=== PATIENT | female | born 1930 | race Caucasian/White ===

== ENCOUNTER 2021-04-03 15:33 | Inpatient (IN) | payer OTHER, MEDICAID, SELFPAY ==
[~2021-04-03] VITALS: Ht 149.9 cm; Wt 49.9 kg
[2021-04-03 15:33] VITALS: BP_SYST 224
[2021-04-03] MEDS ORDERED: ACETAMINOPHEN 325 MG TABLET PO ONE (15:45)
--- NOTE | 2021-04-03 15:51 | NUR ---
PT BIBA FROM [facility] [place], PT AAOX4, IN NAD. REPORTS SHE TWISTED HER FEET AND FELL, DENIES LOC. NO OBVIOUS HEAD TRAUMA OR ANY INJURY SEEN. PT ONLY REPORTS MOD PAIN TO RT THIGH 10/09. PT HYPERTENSIVE AT 198/102, DOES NOT KNOW IF SHE TOOK HER HTN MEDS THEY ARE GIVEN BY THE STAFF IN HER HOME. SAFETY PRECAUTIONS TAKEN.
--- NOTE | 2021-04-03 15:53 | NUR ---
dr ford in room for exam
--- NOTE | 2021-04-03 15:58 | NUR ---
PT BACK FROM CT SCAN
--- NOTE | 2021-04-03 16:45 | NUR ---
PT HAD TWO EPISODES OF DIARRHEA, DR FONSECA INFORMED.
[2021-04-03 16:58] LABS: BASOPHILS # (AUTO) 0.1 K/uL (0.0-0.2); BASOPHILS % (AUTO) 0.6 % (0.0-2.0); EOSINOPHILS # (AUTO) 0.4 K/uL (0.0-0.4); EOSINOPHILS % (AUTO) 3.4 % (0.0-4.0); HEMATOCRIT 40.4 % (36-48); HEMOGLOBIN 13.6 g/dL (12.0-16.0); LYMPHOCYTES % (AUTO) 9.6 % (20.5-51.5); MEAN CORPUSCULAR HEMOGLOBIN 33 pg (27-31); MEAN CORPUSCULAR HGB CONC 34 % (32-36); MEAN CORPUSCULAR VOLUME 97 fL (79.0-98.0); MONOCYTES # (AUTO) 0.6 K/uL (0.0-1.0); MONOCYTES % (AUTO) 5.5 % (1.7-9.3); NEUTROPHILS # (AUTO) 8.2 K/uL (1.8-7.7); NEUTROPHILS % (AUTO) 80.9 % (40.0-70.0); PLATELET COUNT (AUTO) 241 K/uL (130-430); RED BLOOD CELL COUNT(AUTO) 4.18 MIL/uL (4.2-6.2); RED CELL DISTRIBUTION WIDTH 13.9 % (9.0-15.0); WHITE BLOOD COUNT (AUTO) 10.2 K/uL (4.8-10.8)
[2021-04-03] MEDS ORDERED: METOPROLOL TARTRATE 5 MG/5 ML AMPUL IVP ONE (17:00)
--- NOTE | 2021-04-03 17:03 | NUR ---
XRAY AT BEDSIDE.
--- NOTE | 2021-04-03 17:03 | NUR ---
# 16 FR catheter with use of sterile technique. Immediate return of cc urine noted. Bedside drainage bag placed below level of bladder. Urine sample collected and sent to lab. Pt tolerated procedure . Patient arrived with in place, changed due to standard of practice prior to admission. Patient unable to toilet self.
[2021-04-03 17:07] LABS: ANION GAP 5 (5-15); CHLORIDE 99 mmol/L (98-107); CREATININE 0.88 mg/dL (0.55-1.30); GLUCOSE 126 mg/dL (70-99); POTASSIUM 3.6 mmol/L (3.5-5.1); SODIUM SERUM 134 mmol/L (136-145); UREA NITROGEN, BLOOD 23 mg/dL (8-21)
[2021-04-03 17:16] LABS: BILIRUBIN,URINE NEGATIVE (NEGATIVE); BLOOD, URINE 1+ (NEGATIVE); CLARITY/URINE CLEAR (CLEAR); COLOR,URINE YELLOW (YELLOW); GLUCOSE,URINE NEGATIVE (NEGATIVE); KETONES,URINE NEGATIVE (NEGATIVE); LEUKOCYTE ESTERASE ,URINE 1+ (NEGATIVE); NITRITE, URINE POSITIVE (NEGATIVE); PH,URINE 7.5 (5.0-8.0); PROTEIN URINE NEGATIVE (NEGATIVE); UROBILINOGEN,URINE 0.2 (0.2-1.0)
[2021-04-03 17:32] LABS: BACTERIA,URINE MANY /HPF (None Seen); WBC,URINE 20-50 /HPF (0-3)
[2021-04-03 17:33] LABS: CALCIUM OXALATE CRYSTALS,UR None Seen /HPF (None Seen); CALCIUM PHOSPHATE CRYSTALS,UR None Seen /HPF (None Seen); OTHER CRYSTALS,URINE None Seen /HPF (None Seen); TRICHOMONAS,URINE None Seen /HPF (None Seen)
[2021-04-03] MEDS ORDERED: ACETAMINOPHEN 325 MG TABLET PO PRN (18:00)
[2021-04-03] MEDS ORDERED: cefTRIAXone 1 GM IVPB PREMIX 50 ML IV ONE (18:00)
[2021-04-03] MEDS ORDERED: cefTRIAXone 1 GM IVPB PREMIX 50 ML IV SCH (18:00)
[2021-04-03] MEDS ORDERED: ONDANSETRON HCL 4 MG/2 ML VIAL IVP PRN (18:00)
[2021-04-03] MEDS ORDERED: hydrALAZINE HCL 20 MG/ML VIAL ONE (18:31)
--- NOTE | 2021-04-03 18:31 | NUR ---
MEDICATED WITH HYDRALAZINE 5MG IVP, HAD TO OVERRIDE. AISLINN ROGERS INFORMED, UNABLE TO CHART.
[2021-04-03] MEDS ORDERED: APIX2.5T PO (18:50)
[2021-04-03] MEDS ORDERED: METH2.5T PO (18:50)
--- NOTE | 2021-04-03 18:54 | NUR ---
AISLINN ROGERS IMFORMED OF PT'S CONT DEVAN BP 214/84, PT GIVEN LOPRESSOR AND HYDRALAZINE IV. PT CONTINUES TO BE HYPERTENSIVE. DR ROSADO INFORMED.
[2021-04-03 19:00] VITALS: BP_SYST 148
[2021-04-03] MEDS ORDERED: cloNIDine HCL 0.1 MG TABLET ONE (19:00)
[2021-04-03] MEDS ORDERED: cloNIDine HCL 0.1 MG TABLET PO ONE (19:00)
--- NOTE | 2021-04-03 19:07 | NUR ---
REPORT GIVEN TO GABY SHIRLEY
[2021-04-03] MEDS ORDERED: MORPHINE 2 MG/ML INJ. SYRINGE ONE (19:13)
--- NOTE | 2021-04-03 19:15 | NUR ---
change of shift.pt.received via the er-dept.pt.presents s/p fall:rt.hip fx.pt.received morphine ivp p/t transfer.pt.presents iv access location rt.hand iv lock.pt.presents cath intact.pt.stated pain level comfortable.general status stable. respiratory status stable;unlabored@room air.call light/telephone placed w/in access of the pt.
--- NOTE | 2021-04-03 19:18 | NUR ---
RECEIVED REPORT FROM KATHYA SHIRLEY
--- NOTE | 2021-04-03 19:19 | NUR ---
PT HAS ADMITTING ORDER FOR MORPHINE 2MG IVP, HOWEVER, NOT SHOWING UP ON EMAR, OK'ED BY CHARGE KEN TO PULL MS FROM PYXIS. KEN RN WITNESS TO OR REMOVING MS. PT WAS HAVING SUDDEN 10/10 PAIN TO GROIN AREA.
--- NOTE | 2021-04-03 19:58 | NUR ---
Patient will be admitted to care of DR ROSADO. Admitted to TELE unit. Will go to room 120A. Belongings list completed. Complete and up to date summary report printed. SBAR report to be given at bedside with opportunity for questions.
[2021-04-03 20:00] VITALS: BP_SYST 148
--- NOTE | 2021-04-03 20:00 | NUR ---
pt.assessed.v/s assessed values note b/p status elevated.to f/u review emar med-list. cath intact urine content present.pt.assessed for cleanliness pt.repositioned.i have reviewed w pt.the diet status:npo;and indication.general status stable.respiratory status stable;unlabored.call light/telephone placed w/in access of the pt.
--- NOTE | 2021-04-03 21:30 | NUR ---
i have initiated the administration iv fluids ns via peripheral iv access location:rt.hand and catapres:0.2mg po x1 dose. no c/o pain,nausea.call light/telephone placed w/in access of the pt.
[2021-04-03] MEDS: NACL 0.9% 1,000 ML IV SCH (21:39)
--- NOTE | 2021-04-03 22:00 | NUR ---
pt.assessed.pt.presents quiescent affect;calm,somnolent.per flacc pain mgx pt.absent facial grimaces/body posturing.iv access intact iv fluids infusing. cath intact urine content present.pt.assessed for cleanliness pt.repositioned.call light/telephone placed w/in access of the pt.
[2021-04-04] VITALS: BP_SYST 141
--- NOTE | 2021-04-04 | NUR ---
pt.assessed.v/s assessed values wnl.no c/o pain,nausea.iv access intact iv fluids infusing. cath intact urine content present.pt.assessed for cleanliness pt.repositioned.call light/telephone placed w/in access of the pt.
[2021-04-04] MEDS: MORPHINE 2 MG/ML INJ. SYRINGE IVP PRN ×2 (01:42→06:40)
--- NOTE | 2021-04-04 02:00 | NUR ---
pt.assessed.pt.requested medication;pain.i have administered morphine;1mg ivp.to assess the efficacy of the pain medication per pain mgx protocol.iv access intact iv fluids infusing. cath intact urine content present.pt.assessed for cleanliness pt.repositioned.call light/telephone placed w/in access of the pt.
--- NOTE | 2021-04-04 04:00 | NUR ---
pt.assessed.pt.presents quiescent affect;calm,somnolent.per flacc pain mgx pt.absent facial grimaces/body posturing. iv access intact iv fluids infusing.pt.assessed for cleanliness.pt.repositioned.call light/telephone placed w/in access of the pt.
--- NOTE | 2021-04-04 05:07 | NUR ---
CONSULTATION PAGED/CALLED Reason for Consultation: RIGHT FEMUR FRX Person Who was Notified: BJORN Consulting Physician: TATUM Compounding Pharmacy Technician Specialty: Ordering Physician: AYESHA
--- NOTE | 2021-04-04 06:30 | NUR ---
pt.assessed.i have administered morphine;1mg ivp.to assess the efficacy of the pain medication per pain mgx protocol.pt.repositioned.iv access intact iv fluids infusing.call light/telephone placed w/in access of the pt.
[2021-04-04 07:18] LABS: BASOPHILS # (AUTO) 0.1 K/uL (0.0-0.2); BASOPHILS % (AUTO) 0.7 % (0.0-2.0); EOSINOPHILS # (AUTO) 0.3 K/uL (0.0-0.4); EOSINOPHILS % (AUTO) 3.1 % (0.0-4.0); HEMATOCRIT 36.5 % (36-48); HEMOGLOBIN 12.3 g/dL (12.0-16.0); LYMPHOCYTES # (AUTO) 1.1 K/uL (1.0-5.5); LYMPHOCYTES % (AUTO) 9.4 % (20.5-51.5); MEAN CORPUSCULAR HEMOGLOBIN 33 pg (27-31); MEAN CORPUSCULAR HGB CONC 34 % (32-36); MEAN CORPUSCULAR VOLUME 97 fL (79.0-98.0); MONOCYTES # (AUTO) 0.6 K/uL (0.0-1.0); MONOCYTES % (AUTO) 5.5 % (1.7-9.3); NEUTROPHILS # (AUTO) 9.3 K/uL (1.8-7.7); NEUTROPHILS % (AUTO) 81.3 % (40.0-70.0); PLATELET COUNT (AUTO) 209 K/uL (130-430); RED BLOOD CELL COUNT(AUTO) 3.78 MIL/uL (4.2-6.2); RED CELL DISTRIBUTION WIDTH 14.1 % (9.0-15.0); WHITE BLOOD COUNT (AUTO) 11.4 K/uL (4.8-10.8)
[2021-04-04 07:45] LABS: ANION GAP 9 (5-15); CALCIUM 8.1 mg/dL (8.4-11.0); CHLORIDE 99 mmol/L (98-107); CREATININE 0.89 mg/dL (0.55-1.30); GLUCOSE 107 mg/dL (70-99); SODIUM SERUM 135 mmol/L (136-145); UREA NITROGEN, BLOOD 18 mg/dL (8-21)
[2021-04-04 08:06] VITALS: BP_SYST 137
--- NOTE | 2021-04-04 08:29 | NUR ---
ATTEMPTED TO SEE PATIENT FOR PHYSICAL THERAPY EVALUATION. AWAITING ORTHO CONSULTATION. PATIENT CONTINUES WITH INCREASED PAIN; PRE-MEDICATED. WILL FOLLOW UP TUESDAY; RN AWARE.
[2021-04-04] MEDS: cefTRIAXone 1 GM in D5W 50 ML IV SCH (08:30)
--- NOTE | 2021-04-04 08:34 | NUR ---
ROCEPHIN IV GIVEN AT THIS TIME.
--- NOTE | 2021-04-04 08:34 | NUR ---
NOTES PATIENT AAOX 4. LUNGS BILATERALLY CLEAR. ABDOMEN SOFT AND NON DISTENDED. HAS IV ACCESS ON THE RT WRIST #22 WITH NORMAL SALINE AT 40CC/HR INFUSING ON WELL. CALL LIGHTS WITHIN REACH. BED LOW POSITION, ALARMED AND LOCKED. WILL CONTINUE TO MONITOR.
[2021-04-04] MEDS ORDERED: KCL 40 mEq in 100 mL (PREMIX) 100 ML IV PRN (09:15)
--- NOTE | 2021-04-04 11:40 | NUR ---
Nutrition Update Loc Scale 17 noted. Pt admitted for R femur fracture, UTI. Diet: NPO BMI: 22.4 kg/m2 RD to follow per nutrition care standards.
[2021-04-04 12:20] LABS: INR 1.2 (0.8-1.2); PROTHROMBIN TIME 12.2 SECS (9.5-12.5)
[2021-04-04] MEDS ORDERED: KCL 20 mEq in 100 mL (PREMIX) 200 ML IV PRN (13:00)
[2021-04-04 13:02] VITALS: BP_SYST 139
[2021-04-04 15:45] VITALS: BP_SYST 137
--- NOTE | 2021-04-04 16:20 | NUR ---
POTASSIUM IV GIVEN ORDERED BY THE PRIMARY MD.
[2021-04-04 17:12] VITALS: BP_SYST 138
--- NOTE | 2021-04-04 18:26 | NUR ---
Dietitian Recommendations * Cardiac diet w/ Ensure High Protein BID, Mendez BID (supplements provide 500 kcal/day, 37 gm protein/day) * Encourage increase PO intakes LP, RD Please refer to Nutrition Assessment for details. Addendum: 04/04/21 at [address] Amended: Links added.
[2021-04-04] MEDS: NACL 0.9% 1,000 ML IV SCH (18:37)
--- NOTE | 2021-04-04 18:38 | NUR ---
PATIENT REFUSED PAIN MEDICATION, SAID I AM OKAY FOR NOW.
[2021-04-04 20:00] VITALS: BP_SYST 129
--- NOTE | 2021-04-04 20:00 | NUR ---
Pt received in bed resting. No signs of distress. Verbally responsive and able to make needs known. Breathing adequately on RA. Denies any pain/discomfort to R femur at this time. Repositioned for comfort. Offered pain medications but refused at this time. IVF continue running as ordered; shila well. FC draining clr/yellow urine at this time. Call light within reach
[2021-04-05] VITALS (10 sets, daily range): BP systolic 112–189
[2021-04-05] MEDS ORDERED: BISACODYL 10 MG/SUPPOSITORY RC ONE (06:00)
--- NOTE | 2021-04-05 06:21 | NUR ---
Pt up in bed in stable cond. No change in condition. Pt asked to turn television on at this time. Denies any pain/discomfort. IVF continue running as ordered and shila well. Pt with order for suppository this am; refused at this time due to Large BM last night. Bed in low position. Call light within reach.
[2021-04-05 07:44] LABS: BASOPHILS # (AUTO) 0.1 K/uL (0.0-0.2); BASOPHILS % (AUTO) 0.6 % (0.0-2.0); EOSINOPHILS # (AUTO) 0.5 K/uL (0.0-0.4); EOSINOPHILS % (AUTO) 5.1 % (0.0-4.0); HEMATOCRIT 39.3 % (36-48); HEMOGLOBIN 13.2 g/dL (12.0-16.0); LYMPHOCYTES # (AUTO) 0.8 K/uL (1.0-5.5); LYMPHOCYTES % (AUTO) 7.6 % (20.5-51.5); MEAN CORPUSCULAR HEMOGLOBIN 33 pg (27-31); MEAN CORPUSCULAR HGB CONC 34 % (32-36); MEAN CORPUSCULAR VOLUME 97 fL (79.0-98.0); MONOCYTES # (AUTO) 0.9 K/uL (0.0-1.0); MONOCYTES % (AUTO) 8.6 % (1.7-9.3); NEUTROPHILS # (AUTO) 7.8 K/uL (1.8-7.7); NEUTROPHILS % (AUTO) 78.1 % (40.0-70.0); PLATELET COUNT (AUTO) 193 K/uL (130-430); RED BLOOD CELL COUNT(AUTO) 4.06 MIL/uL (4.2-6.2); RED CELL DISTRIBUTION WIDTH 14.1 % (9.0-15.0)
--- NOTE | 2021-04-05 07:58 | NUR ---
CONSULTATION PAGED/CALLED Reason for Consultation: PRE-OP CARDIAC, AFIB W RVR Person Who was Notified: VICTORINA Consulting Physician: TERRI Debt Management Counselor Specialty: CARDIO Ordering Physician: GÉNESIS
--- NOTE | 2021-04-05 08:00 | NUR ---
NOTES PATIENT AAOX3-4 LUNGS BILATERALLY CLEAR. ABDOMEN SOFT AND NON DISTENDED. HAS IV ACCESS ON THE RT HAND #22 WITH NS 75CC/HR INFUSING ON WELL. CALL LIGHTS WITHIN REACH. BED IN LOW POSITION, ALARMED AND LOCKED. PLACED SCDS BILATERALLY. WILL CONTINUE MONITOR
[2021-04-05] MEDS: MORPHINE 2 MG/ML INJ. SYRINGE IVP PRN (08:11)
[2021-04-05] MEDS: hydrALAZINE HCL 20 MG/ML VIAL IVP PRN (08:13)
[2021-04-05] MEDS: cefTRIAXone 1 GM in D5W 50 ML IV SCH (08:14)
[2021-04-05 08:25] LABS: ANION GAP 11 (5-15); CALCIUM 8.5 mg/dL (8.4-11.0); CHLORIDE 101 mmol/L (98-107); CREATININE 0.86 mg/dL (0.55-1.30); GLUCOSE 105 mg/dL (70-99); SODIUM SERUM 136 mmol/L (136-145); UREA NITROGEN, BLOOD 16 mg/dL (8-21)
--- NOTE | 2021-04-05 08:30 | NUR ---
DR ROSADO TO CALL DR WINN FOR VERIFICATION OF THE SITE OF SURGERY.
[2021-04-05] MEDS ORDERED: cloNIDine HCL 0.1 MG TABLET PO PRN (08:45)
[2021-04-05] MEDS ORDERED: CARVEDILOL 3.125 MG TABLET (COREG) PO SCH (09:00)
--- NOTE | 2021-04-05 09:26 | NUR ---
CALLED DR WINN FOR VERIFICATION OF CONSENT TO READ ORDER FOR SURGERY. AWAITING TO CALL BACK.
[2021-04-05] MEDS ORDERED: METOPROLOL TARTRATE 50 MG TABLET PO SCH (09:30)
--- NOTE | 2021-04-05 09:30 | NUR ---
DUE MEDS GIVEN AT THIS TIME. MADE COMFORTABLE
[2021-04-05 09:31] LABS: POTASSIUM 2.9 mmol/L (3.5-5.1)
[2021-04-05] MEDS ORDERED: lisinopriL 20 MG TABLET PO ONE (11:30)
[2021-04-05] MEDS ORDERED: POTASSIUM CHLORIDE 20 MEQ TAB.PRT.SR PO ONE (11:30)
[2021-04-05] MEDS: DOCUSATE SODIUM 100 MG CAPSULE PO SCH ×2 (11:39→20:16)
[2021-04-05] MEDS: POLYETHYLENE GLYCOL 3350, 17 GM/ POWD.PACK PO SCH (11:39)
[2021-04-05] MEDS ORDERED: METOPROLOL TARTRATE 50 MG TABLET PO ONE (11:45)
--- NOTE | 2021-04-05 13:14 | NUR ---
DR ALONZO VALDES CALLED FOR POTASSIUM LEVEL OF 2.9 DR MURRAY ORDERED K DUR 20 MEQ PO AWAITING TO CALL BACK
--- NOTE | 2021-04-05 13:45 | NUR ---
PAGED DR ROSADO PAGED DR ROSADO FOR ORDERS LEFT A VOICEMAIL
--- NOTE | 2021-04-05 13:55 | NUR ---
CALLED DR TATUM SOLIS FOR POTASSIUM K RIDER. IV ORDER.
--- NOTE | 2021-04-05 13:55 | NUR ---
HIGH ALERT NOTE: Called Dr. WINN [id number] back [id number] identified within the medical roster to verify physician authenticity.
[2021-04-05] MEDS ORDERED: POTASSIUM CHLORIDE 20 MEQ in NS 250 ML IV ONE ×2 (14:00→18:00)
--- NOTE | 2021-04-05 15:50 | NUR ---
SECOND PAGE DR ROSADO PAGED USING ANSWERING SERVICE LEFT SECOND VOICEMAIL.
--- NOTE | 2021-04-05 15:58 | NUR ---
FIRST BAG OF POTASSIUM 20 MEQ HANGED AT THIS TIME. AFTER THIS BAG ANOTHER ONE TO COMPLETE.
--- NOTE | 2021-04-05 17:00 | NUR ---
INFORMED KATHY JEAN REGARDING INCENTIVE SPIROMETRY TEACHING.
--- NOTE | 2021-04-05 17:31 | NUR ---
PATIENT RESTING QUITELY. NO PAIN NOR DISTRESS NOTED. VITALS SIGNS STABLE. AFEBRILE.
--- NOTE | 2021-04-05 17:45 | NUR ---
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 AWAITING TO CALL BACK.
--- NOTE | 2021-04-05 18:14 | NUR ---
PATIENT VERBALIZED THAT SHE IS FULL EATING DINNER. PLEASE CONTINUE TO FILL UP DOCUMENTS FOR SURGERY TOMORROW IN PM. AFTER BREAKFAST PATIENT TO BE NPO, ORDERED.
[2021-04-05] MEDS: NACL 0.9% 1,000 ML IV SCH (20:00)
--- NOTE | 2021-04-05 20:00 | NUR ---
Pt received up in bed in stable cond. Verbally responsive and able to make needs known. No signs of apparent distress. Breathing adequately on RA. Pt with scheduled R hip arthoplasty for tomorrow am and to be NPO after breakfast;Pt aware. Denied any need for pain medication at this time. Repositioned for comfort. IVF running adequately. No signs of infiltration;infection to site. Call light within reach.
[2021-04-05] MEDS: POTASSIUM CHLORIDE 20 MEQ TAB.PRT.SR PO SCH (20:16)
[2021-04-05] MEDS: METOPROLOL TARTRATE 50 MG TABLET PO SCH (20:17)
--- NOTE | 2021-04-05 21:30 | NUR ---
2nd bag of POTASSIUM 20 MEQ running at this time as ordered.
--- NOTE | 2021-04-05 22:19 | NUR ---
CONSULTATION CALLED FOR DR MURRAY FOR CONSULT OF PRE-OP CARDIAC, AFIB W/ RVR ORDER BY DR ROSADO SPOKE WITH ADE
[2021-04-06] VITALS (7 sets, daily range): BP systolic 128–194
[2021-04-06] MEDS: NACL 0.9% 1,000 ML IV SCH ×2 (06:23→20:30)
--- NOTE | 2021-04-06 06:39 | NUR ---
Pt noted up in bed at this time. No signs of distress. Verbally responsive and able to make needs known. Cont breathing adequately on RA. No change in condition noted. Care to be endorsed to am nurse. Pt with scheduled surgery to R hip as ordered; to be NPO after breakfast.
[2021-04-06 07:20] LABS: BASOPHILS # (AUTO) 0.1 K/uL (0.0-0.2); BASOPHILS % (AUTO) 0.6 % (0.0-2.0); EOSINOPHILS # (AUTO) 0.6 K/uL (0.0-0.4); HEMATOCRIT 39.3 % (36-48); HEMOGLOBIN 12.9 g/dL (12.0-16.0); LYMPHOCYTES # (AUTO) 0.9 K/uL (1.0-5.5); LYMPHOCYTES % (AUTO) 6.6 % (20.5-51.5); MEAN CORPUSCULAR HEMOGLOBIN 32 pg (27-31); MEAN CORPUSCULAR HGB CONC 33 % (32-36); MEAN CORPUSCULAR VOLUME 97 fL (79.0-98.0); MONOCYTES # (AUTO) 1.1 K/uL (0.0-1.0); MONOCYTES % (AUTO) 8.3 % (1.7-9.3); NEUTROPHILS # (AUTO) 10.3 K/uL (1.8-7.7); NEUTROPHILS % (AUTO) 79.5 % (40.0-70.0); PLATELET COUNT (AUTO) 180 K/uL (130-430); RED BLOOD CELL COUNT(AUTO) 4.04 MIL/uL (4.2-6.2); RED CELL DISTRIBUTION WIDTH 14.7 % (9.0-15.0)
--- NOTE | 2021-04-06 07:47 | NUR ---
CONSULTATION PAGED REASON FOR CONSULTATION:MRSA, UTI WAS CONSULT CALLED?Y PERSON WHO WAS NOTIFIED:THANG CONSULTING PHYSICIAN:CHANTEL RICE HYPERTRICHOLOGIST SPECIALTY:INFECTIOUS DISEASE HYPERTRICHOLOGIST PHONE NUMBER:[phone] REQUESTING PHYSICIAN:[facility]
--- NOTE | 2021-04-06 08:00 | NUR ---
late entry due to care am notes pt stable denies any pain or orther discomfort .res even and unlabored. ivf infusing well. iv site intact. no s/s of infiltration noted. safety/fall precaution in place. .poc discussed with pt. pt verbalized understanding.
[2021-04-06 08:16] LABS: ALANINE AMINOTRANSFERASE 31 U/L (12-78); ALBUMIN 2.8 g/dL (3.4-4.8); ANION GAP 10 (5-15); ASPARTATE AMINOTRANSFERASE 27 U/L (10-37); CALCIUM 8.3 mg/dL (8.4-11.0); CHLORIDE 103 mmol/L (98-107); CREATININE 0.75 mg/dL (0.55-1.30); GLUCOSE 123 mg/dL (70-99); POTASSIUM 3.3 mmol/L (3.5-5.1); SODIUM SERUM 137 mmol/L (136-145); TOTAL BILIRUBIN 0.9 mg/dL (0.0-1.0); UREA NITROGEN, BLOOD 16 mg/dL (8-21)
[2021-04-06] MEDS: POTASSIUM CHLORIDE 20 MEQ TAB.PRT.SR PO SCH ×2 (08:22→21:56)
[2021-04-06] MEDS: lisinopriL 20 MG TABLET PO SCH (08:22)
[2021-04-06] MEDS: METOPROLOL TARTRATE 50 MG TABLET PO SCH ×2 (08:23→21:57)
[2021-04-06] MEDS: POLYETHYLENE GLYCOL 3350, 17 GM/ POWD.PACK PO SCH (08:25)
[2021-04-06] MEDS: DOCUSATE SODIUM 100 MG CAPSULE PO SCH ×2 (08:25→21:56)
[2021-04-06] MEDS ORDERED: VANCOMYCIN HCL 500 MG in NS 100 ML IV SCH (10:00)
[2021-04-06] MEDS ORDERED: VANCOMYCIN HCL 1 GM/NS PREMIX 250 ML IV ONE (10:30)
--- NOTE | 2021-04-06 12:30 | NUR ---
rounds pt stable not in acute distress. denies any pain or orther discomfort. will conitnue to monitor.lauren from surgery called and informed that as per dr wheeler surgery will be tomorrow.
[2021-04-06] MEDS: hydrALAZINE HCL 20 MG/ML VIAL IVP PRN (13:57)
--- NOTE | 2021-04-06 14:00 | NUR ---
bp pt bp 178/103 hydralazine 5 mg ivp given as ordered. pt stable denies any pain or orther discomfort. call light within reach. kept comfortable. will continue to monitor
--- NOTE | 2021-04-06 14:30 | NUR ---
recheck bp recheck bp 128/82. denies any pain or sob.
--- NOTE | 2021-04-06 16:44 | NUR ---
rounds pt stable not in acute distress. repositioned with pillow c/ of pain during movement. offered pain med .pt refused for pain med at this time. will continue to monitor
--- NOTE | 2021-04-06 19:00 | NUR ---
closing notes pt stable denies any pain or orther discomfort .res even and unlabored. ivf infusing well. iv site intact. no s/s of infiltration noted. safety/fall precaution in place. .poc discussed with pt. pt verbalized understanding. call light within reach. needs attended.will endorse to night nurse
--- NOTE | 2021-04-06 19:20 | NUR ---
Zahra Negrete s/w Terri
--- NOTE | 2021-04-06 20:00 | NUR ---
Received pt in bed; verbally responsive and able to make needs known. No apparent signs of distress. IVF continue running as ordered; 22 g to R hand flushed with NS;patent;no signs of infiltration;infection noted. Pt R hip hemiarthoplasty post poned until Tues am. No scheduled/confirmed time as of now. Pt aware. Call light within reach
[2021-04-06] MEDS ORDERED: MUPIROCIN 1 GM OIN.PF.APP NS SCH (21:00)
[2021-04-06] MEDS: LINEZOLID 300 ML IV SCH (21:57)
[2021-04-07 00:45] VITALS: BP_SYST 185
[2021-04-07 04:00] VITALS: BP_SYST 152
[2021-04-07] MEDS: hydrALAZINE HCL 20 MG/ML VIAL IVP PRN ×3 (05:43→20:42)
--- NOTE | 2021-04-07 06:39 | NUR ---
Pt resting in bed, easy to arouse. No apparent signs of distress. Pt NPO since midnight and aware of NPO status until surgery. R hip hemiarthroplasty to be done today.
[2021-04-07 06:55] LABS: BASOPHILS % (AUTO) 0.3 % (0.0-2.0); EOSINOPHILS # (AUTO) 0.4 K/uL (0.0-0.4); EOSINOPHILS % (AUTO) 3.4 % (0.0-4.0); HEMOGLOBIN 13.2 g/dL (12.0-16.0); LYMPHOCYTES # (AUTO) 0.9 K/uL (1.0-5.5); LYMPHOCYTES % (AUTO) 6.6 % (20.5-51.5); MEAN CORPUSCULAR HEMOGLOBIN 32 pg (27-31); MEAN CORPUSCULAR HGB CONC 33 % (32-36); MEAN CORPUSCULAR VOLUME 96 fL (79.0-98.0); MONOCYTES # (AUTO) 1.4 K/uL (0.0-1.0); MONOCYTES % (AUTO) 10.8 % (1.7-9.3); NEUTROPHILS # (AUTO) 10.3 K/uL (1.8-7.7); NEUTROPHILS % (AUTO) 78.9 % (40.0-70.0); PLATELET COUNT (AUTO) 195 K/uL (130-430); RED BLOOD CELL COUNT(AUTO) 4.15 MIL/uL (4.2-6.2); RED CELL DISTRIBUTION WIDTH 14.1 % (9.0-15.0)
[2021-04-07] MEDS: HYDROcodone/ACETAMIN 5-325 MG TAB (NORCO/ VICODIN) PO PRN (07:54)
[2021-04-07] MEDS: NACL 0.9% 1,000 ML IV SCH ×2 (07:59→20:15)
[2021-04-07 08:15] LABS: ANION GAP 9 (5-15); CALCIUM 8.4 mg/dL (8.4-11.0); CHLORIDE 101 mmol/L (98-107); CREATININE 0.65 mg/dL (0.55-1.30); GLUCOSE 125 mg/dL (70-99); POTASSIUM 3.1 mmol/L (3.5-5.1); SODIUM SERUM 135 mmol/L (136-145); UREA NITROGEN, BLOOD 14 mg/dL (8-21)
[2021-04-07] MEDS: MORPHINE 2 MG/ML INJ. SYRINGE IVP PRN (08:44)
[2021-04-07 08:51] VITALS: BP_SYST 175
[2021-04-07] MEDS: POLYETHYLENE GLYCOL 3350, 17 GM/ POWD.PACK PO SCH (09:02)
[2021-04-07] MEDS: POTASSIUM CHLORIDE 20 MEQ TAB.PRT.SR PO SCH ×2 (09:03→20:15)
[2021-04-07] MEDS: lisinopriL 20 MG TABLET PO SCH (09:03)
[2021-04-07] MEDS: DOCUSATE SODIUM 100 MG CAPSULE PO SCH ×2 (09:03→20:15)
[2021-04-07] MEDS: METOPROLOL TARTRATE 50 MG TABLET PO SCH ×2 (09:04→20:16)
[2021-04-07] MEDS: LINEZOLID 300 ML IV SCH ×2 (09:17→20:15)
[2021-04-07] MEDS: MUPIROCIN 2% TOPICAL OINTMENT 22 GM NS SCH ×2 (09:17→20:17)
--- NOTE | 2021-04-07 09:41 | NUR ---
INFORMED DR MURRAY ON THE FLOOR, INFORMED HIM THAT PATIENT HAS ELEVATED HEART RATE, 140-160. NO NEW ORDERS RECEIVED.
[2021-04-07] MEDS ORDERED: FLUCONAZOLE 200 mg/ NS 100 ML IV ONE (11:00)
[2021-04-07 11:24] VITALS: BP_SYST 154
--- NOTE | 2021-04-07 12:52 | NUR ---
Nutrition F/U Admitting Diagnosis: R femur fracture Medical History Comment: no PMH noted per EMR review SARS-CoV-2 Ag (Rapid) Negative 04/03 Subjective Information: RD bedside visit was deferred. Per EMR, pt is for surgery today, hence the NPO order. Pt w/ poor appetite and has not been meeting estimated needs, possibly associated w/ pain. Last BM 04/06 x1, no pressure injury noted. Pt may benefit from resuming diet and ONS and modular. Current Diet Order/Nutrition Support: NPO 04/07 Breakfast Pertinent Medications: morphine, k-dur, miralax, colace, zofran Pertinent Labs: 04/07: Na 135L, K 3.1L, BG 125H, BUN 14, Cre 0.65 Height: 4 feet, 11.00 inches Weight: 110 pounds/ 49.236588 kilograms Body Mass Index: 22.21 kg/m2 Posey/Adjusted Body Weight: 98#/44 kg Estimated Energy Expenditure (kcals/day) 5614-6615 kcal/day (30-35 kcal/kg CBW d/t possible Sx) Estimated Protein Required (g/day) 60-75 gm/day (1.2-1.5 gm/kg CBW d/t possible Sx) Estimated Fluid Required (l/day) 1.5-1.8 L/day (1 ml/kcal/day for maintenance) Problem/Etiology/Signs/Symptoms Increased nutritional needs related to metabolic demands as evidenced by estimated nutritional requirements for possible Sx. (*ongoing) Expected Outcomes/Goals - Monitor diet advancement appetite and PO intakes w/ goal of pt meeting at least 50% of estimated nutritional needs, labs trending WNL, normal GI function, and skin integrity/wt maintenance Dietitian Recommendations * Continue NPO per MD * Resume: Cardiac diet w/ Ensure High Protein BID, Mendez BID (supplements provide 500 kcal/day, 37 gm protein/day) * Encourage increase PO intakes Follow Up High Risk: F/U in 2-3days
[2021-04-07] MEDS ORDERED: cefOXitin 2 GM IVPB PREMIX 50 ML IV ONE (14:50)
[2021-04-07] MEDS ORDERED: NS 1000 ML IV.SOLN IV ONE (14:50)
[2021-04-07] MEDS ORDERED: WATER FOR IRRIGATION,STERILE 1,000 ML IRRIG.SOLN IR ONE (14:50)
[2021-04-07] MEDS ORDERED: CEFAZOLIN 2 GM IVPB PREMIX 50 ML IV ONE (14:50)
[2021-04-07] MEDS ORDERED: NS IRRIG SOLN 1000 ML IR ONE (14:50)
[2021-04-07] MEDS ORDERED: BUPIVACAINE /PF 0.75% 10 ML VIAL INJ ONE ×2 (14:50)
[2021-04-07] MEDS ORDERED: PROPOFOL 200MG/ 20ML VIAL (DIPRIVAN) IV ONE (14:50)
[2021-04-07] MEDS ORDERED: ONDANSETRON HCL 4 MG/2 ML VIAL IVP PRN (15:45)
[2021-04-07] MEDS ORDERED: fentaNYL CITRATE/PF 100 MCG/2 ML AMP IVP PRN ×2 (15:45)
[2021-04-07] MEDS ORDERED: METOCLOPRAMIDE HCL 10 MG/2 ML VIAL IVP PRN (15:45)
[2021-04-07] MEDS ORDERED: BUPIVACAINE LIPOSOME/PF 266 MG/20 ML VIAL INFIL ONE (16:26)
[2021-04-07 18:30] VITALS: BP_SYST 158
--- NOTE | 2021-04-07 19:35 | NUR ---
OPENING NOTE PT IS POST OP SURGERY FOR RIGHT FEMUR FRACTURE. DRESSING INTACT, CLEAN AND DRY. NO DRAINING OR ODOR NOTED. LEFT HAND IV NOTED. SALINE LOCKED. PT ALERT AND ORIENTED. PT DENIES PAIN AT THIS TIME. PT REQUESTING PURSE TO GRAB PERSONAL CELL PHONE. VS TAKEN WITH BLOOD PRESSURE ELEVATED. NO FEVER, RESPIRATIONS EVEN AND UNLABORED ON RA. NO SIGNS OF DISTRESS NOTED. WEDGE PILLOW IN BETWEEN LEGS. SAFETY PRECAUTIONS IN PLACE. WILL CONTINUE TO MONITOR.
[2021-04-07 20:00] VITALS: BP_SYST 160
--- NOTE | 2021-04-07 20:15 | NUR ---
MEDICATIONS ADMINISTERED SCHEDULED BP MEDICATIONS ADMINISTERED. PT TOLERATED WELL. WILL CONTINUE TO MONITOR.
--- NOTE | 2021-04-07 20:50 | NUR ---
VS TAKEN WITH BP ELEVATED AT 206/124. PRN ANTIHYPERTENSIVE ADMINISTERED VIA IVP. PT TOLERATED WELL. WILL CONTINUE TO MONITOR. NO SIGNS OF DISTRESS NOTED. PT CONTINUES TO DENY PAIN.
--- NOTE | 2021-04-07 21:58 | NUR ---
BP RE EVALUATED. 200/86. RE TAKEN WITH CONTINUED ELEVATED BP. CHARGE NURSE INFORMED. WILL CALL MD FOR NEW ORDERS.
--- NOTE | 2021-04-07 23:17 | NUR ---
CALLED DR. KATZ REPORTED ELEVATED BP AND IMPLEMENTED INTERVENTIONS. PER MD, NEW ONE TIME ORDERS GIVEN. WILL INPUT ORDERS, ADMINISTER TO PT AND RECHECK BP IN 30 MINUTES.
[2021-04-07] MEDS ORDERED: cloNIDine HCL 0.1 MG TABLET PO ONE (23:30)
[2021-04-07] MEDS: CEFAZOLIN 1 GM IVPB PREMIX 50 ML IV SCH (23:43)
--- NOTE | 2021-04-07 23:43 | NUR ---
ANTIHYPERTENSIVE ONE TIME ORDER MEDICATION ADMINISTERED. PT TOLERATED WELL. SAFETY PRECAUTIONS IN PLACE. WILL CONTINUE TO MONITOR.
[2021-04-08] VITALS (7 sets, daily range): BP systolic 155–200
--- NOTE | 2021-04-08 00:23 | NUR ---
BP TAKEN 158/91 ON CHIQUITA. NO SIGNS OF DISTRESS NOTED. RESPIRATIONS EVEN AND UNLABORED ON RA. WILL CONTINUE TO MONITOR.
[2021-04-08] MEDS: CEFAZOLIN 1 GM IVPB PREMIX 50 ML IV SCH (05:37)
--- NOTE | 2021-04-08 06:08 | NUR ---
ROUNDS PT AWAKE IN BED. RESPIRATIONS EVEN AND UNLABORED. NO SIGNS OF DISTRESS NOTED. PT DENIES PAIN. SURGICAL SITE INTACT.
[2021-04-08 06:46] LABS: BASOPHILS % (AUTO) 0.1 % (0.0-2.0); EOSINOPHILS % (AUTO) 0.2 % (0.0-4.0); HEMATOCRIT 37.4 % (36-48); HEMOGLOBIN 12.4 g/dL (12.0-16.0); LYMPHOCYTES # (AUTO) 0.8 K/uL (1.0-5.5); LYMPHOCYTES % (AUTO) 4.5 % (20.5-51.5); MEAN CORPUSCULAR HEMOGLOBIN 32 pg (27-31); MEAN CORPUSCULAR HGB CONC 33 % (32-36); MEAN CORPUSCULAR VOLUME 96 fL (79.0-98.0); MONOCYTES # (AUTO) 1.5 K/uL (0.0-1.0); MONOCYTES % (AUTO) 8.5 % (1.7-9.3); NEUTROPHILS # (AUTO) 15.8 K/uL (1.8-7.7); NEUTROPHILS % (AUTO) 86.7 % (40.0-70.0); PLATELET COUNT (AUTO) 195 K/uL (130-430); RED BLOOD CELL COUNT(AUTO) 3.89 MIL/uL (4.2-6.2); WHITE BLOOD COUNT (AUTO) 18.2 K/uL (4.8-10.8)
--- NOTE | 2021-04-08 06:49 | NUR ---
CLOSING NOTE PT LAYING IN BED AWAKE. RESPIRATIONS EVEN AND UNLABORED. GUNN INTACT DRAINING YELLOW FLUID BY GRAVITY. IVF RUNNING. BED IN LOWEST AND LOCKED POSITION. ALL NEEDS MET. WILL ENDORSE TO DAY RN.
[2021-04-08 07:12] LABS: ANION GAP 11 (5-15); CALCIUM 8.4 mg/dL (8.4-11.0); CHLORIDE 98 mmol/L (98-107); GLUCOSE 115 mg/dL (70-99); SODIUM SERUM 133 mmol/L (136-145); UREA NITROGEN, BLOOD 14 mg/dL (8-21)
--- NOTE | 2021-04-08 08:00 | NUR ---
INITIAL NOTES AWAKE, CONFUSED/DISORIENTED. DENIES ANY PAIN OR SHORTNESS OF BREATH. RIGHT HIP DRESSING IS DRY AND INTACT. ABDUCTOR PILLOW ON. IVF INFUSING WELL. BED ALARM ON. CALL LIGHT WITHIN REACH.
[2021-04-08] MEDS: MUPIROCIN 2% TOPICAL OINTMENT 22 GM NS SCH ×2 (08:28→21:38)
[2021-04-08] MEDS: POTASSIUM CHLORIDE 20 MEQ TAB.PRT.SR PO SCH ×3 (08:28→21:35)
[2021-04-08] MEDS: POLYETHYLENE GLYCOL 3350, 17 GM/ POWD.PACK PO SCH (08:28)
[2021-04-08] MEDS: DOCUSATE SODIUM 100 MG CAPSULE PO SCH ×2 (08:28→21:34)
[2021-04-08] MEDS: lisinopriL 20 MG TABLET PO SCH (08:30)
[2021-04-08] MEDS: METOPROLOL TARTRATE 50 MG TABLET PO SCH ×2 (08:30→21:35)
[2021-04-08] MEDS: LINEZOLID 300 ML IV SCH ×2 (08:31→21:34)
[2021-04-08] MEDS: ENOXAPARIN SODIUM 40 MG/0.4 ML SYRINGE SUBCUT SCH (08:32)
[2021-04-08 08:43] LABS: POTASSIUM 2.7 mmol/L (3.5-5.1)
--- NOTE | 2021-04-08 08:45 | NUR ---
CRITICAL LAB SPOKE TO DR. KATZ AND MADE AWARE OF K RESULTS, INFORMED MD THAT PT WAS ALREADY GIVEN THE ROUTINE POTASSIUM TABLET OF 20MEQ, PER MD HE CHANGED THE ROUTINE TO 40 MEQ AND JUST GIVE THE 40MEQ TONIGHT FOR THE TOTAL OF 60MEQ FOR THIS DAY.
--- NOTE | 2021-04-08 09:39 | NUR ---
Discharge Planning: DCP faxed pt referral to [facility]-[phone], for SNF. Addendum: 04/08/21 at 1042 by Samreen Babb DP DCP received call lidia Garza at [facility] P [phone], [facility]. DCP made CM aware and DCP to follow up. Addendum: 04/08/21 at 1238 by Samreen Babb DP DCP spoke to [facility] [phone], patient accepted to [facility]. DCP made CM aware. Addendum: 04/08/21 at 1441 by Samreen Babb DP MICAELA spoke to Kayla warren [facility] [phone], auth was given to Donato Kulkarni [phone] number to give report patient will go [facility]. Auth for transport with [facility] [id number]. CM made aware.
--- NOTE | 2021-04-08 10:30 | NUR ---
Incentive spirometer- pt refused to use incentive spirometer at this time.
[2021-04-08] MEDS: NACL 0.9% 1,000 ML IV SCH ×2 (10:40→21:37)
[2021-04-08] MEDS: hydrALAZINE HCL 20 MG/ML VIAL IVP PRN ×2 (11:11→16:45)
--- NOTE | 2021-04-08 11:47 | NUR ---
Notes- Patient is agitated and confused. she wants to get up and go to her dentist. Re orient patient that she is in the hospital and just had surgery. Patient still insisting to get up.
--- NOTE | 2021-04-08 14:35 | NUR ---
Wound Evaluation: Late note for 04/08/2021 at 1435 secondary to patient care. Wound Consult ordered for Low Loc Score. Patient evaluated for a low Loc score of 15. Patient was awake, alert, oriented and received in a [place] Bed with an Atmos-Air 9000 mattress. Patient needs some assist to turn in bed right hip fracture and surgery. Surgical dressing is clean, dry and intact. Skin is intact except for surgical wounds. Recommend encourage and assist patient with repositioning side to side only with pillow wedge pelvic tilt every 2 hours with pillow support. Elevate, off-load and float bilateral heels with pillows. Offload pressure areas with pillows for pressure re-distribution. Perform skin care and monitor skin integrity Q shift. Use moisture barrier cream on moisture susceptible areas QID and PRN for soiling.
--- NOTE | 2021-04-08 15:59 | NUR ---
Notes- Patient resting at this time, repositioned, denies any pain.
--- NOTE | 2021-04-08 18:31 | NUR ---
closing notes resting, has poor appetite, only drinks some of her ensure. denies any pain. no distress.
--- NOTE | 2021-04-08 19:30 | NUR ---
OPENING NOTE RECEIVED REPORT FROM DAY RN. PT LAYING IN BED WITH RESPIRATIONS EVEN AND UNLABORED ON RA. PT CURRENTLY DENIES PAIN. PT REFUSING DEMONSTRATE IS. PT STATES, "ILL TAKE THE BLAME FOR IT, DONT WORRY". EDUCATED PT ON IMPORTANCE OF IS AND PREVENTION OF PNEUMONIA. PT CONTINUES TO REFUSE AT THIS TIME. PT ALERT AND ORIENTED TO PERSON. RIGHT FA IV INTACT RUNNING IVF. SAFETY PRECAUTIONS IN PLACE. WILL CONTINUE TO MONITOR.
[2021-04-09 00:27] VITALS: BP_SYST 199
[2021-04-09] MEDS: hydrALAZINE HCL 20 MG/ML VIAL IVP PRN ×2 (02:25→11:39)
--- NOTE | 2021-04-09 03:16 | NUR ---
PT PULLED OUT IV PT BELIEVES TO BE AT HER HOUSE. PT STATES, "I THOUGHT I WAS SUPPOSED TO TAKE EVERYTHING OFF". IV SITE DRY. NO ACTIVE BLEEDING. PT DENIES PAIN. EDUCATED PT ON KEEPING IV AND EQUIPMENT ON. CALL LIGHT WITHIN REACH. BED ALARM ON.
--- NOTE | 2021-04-09 03:59 | NUR ---
IV PLACEMENT: # 20 gauge angiocath placed to right hand. Use of asceptic technique. Opsite placed over site. Blood return noted. Flushed with 7 cc of normal saline. No evidence of infiltration noted. Patient tolerated well.
--- NOTE | 2021-04-09 06:06 | NUR ---
ROUNDS PT LAYING IN BED WITH EYES CLOSED. RIGHT HAND IV 20G INTACT RUNNING IVF. RESPIRATIONS EVEN AND UNLABORED. PT EASILY AWAKENED. PT STATES, "THANK YOU. YOU ALWAYS COME TO MY RESCUE. CORNELIA DELANEY". PT RETURNS TO EYES CLOSED POSITION. NO SIGNS OF DISTRESS NOTED. BP TAKEN AT 178/81. SAFETY PRECAUTIONS IN PLACE. WILL CONTINUE TO MONITOR.
[2021-04-09 06:44] LABS: BASOPHILS % (AUTO) 0.1 % (0.0-2.0); EOSINOPHILS % (AUTO) 0.1 % (0.0-4.0); HEMATOCRIT 34.8 % (36-48); HEMOGLOBIN 11.6 g/dL (12.0-16.0); LYMPHOCYTES % (AUTO) 5.2 % (20.5-51.5); MEAN CORPUSCULAR HEMOGLOBIN 32 pg (27-31); MEAN CORPUSCULAR HGB CONC 33 % (32-36); MEAN CORPUSCULAR VOLUME 96 fL (79.0-98.0); MONOCYTES # (AUTO) 1.7 K/uL (0.0-1.0); MONOCYTES % (AUTO) 8.9 % (1.7-9.3); NEUTROPHILS # (AUTO) 16.2 K/uL (1.8-7.7); NEUTROPHILS % (AUTO) 85.7 % (40.0-70.0); PLATELET COUNT (AUTO) 217 K/uL (130-430); RED BLOOD CELL COUNT(AUTO) 3.64 MIL/uL (4.2-6.2); RED CELL DISTRIBUTION WIDTH 14.1 % (9.0-15.0); WHITE BLOOD COUNT (AUTO) 18.9 K/uL (4.8-10.8)
[2021-04-09 06:52] LABS: ANION GAP 10 (5-15); CALCIUM 8.4 mg/dL (8.4-11.0); CHLORIDE 98 mmol/L (98-107); CREATININE 0.57 mg/dL (0.55-1.30); GLUCOSE 119 mg/dL (70-99); POTASSIUM 3.3 mmol/L (3.5-5.1); SODIUM SERUM 132 mmol/L (136-145); UREA NITROGEN, BLOOD 15 mg/dL (8-21)
[2021-04-09 08:00] VITALS: BP_SYST 158
--- NOTE | 2021-04-09 08:00 | NUR ---
Initial Note Patient awake, alert, and oriented x 3, reoriented to place. Occasional confusion. Reports pain to right lower extremity, states can wait for A.M. medications for pain medication. No distress noted. Repositioned for comfort and to reduce risk for skin breakdown. Will continue to monitor. Call light in reach and bed locked in lowest position with alarm on. Encouraged to call.
[2021-04-09] MEDS ORDERED: SPIRONOLACTONE 25 MG TABLET (ALDACTONE) PO ONE (10:15)
[2021-04-09] MEDS: METOPROLOL TARTRATE 50 MG TABLET PO SCH ×2 (10:16→21:00)
[2021-04-09] MEDS: POLYETHYLENE GLYCOL 3350, 17 GM/ POWD.PACK PO SCH (10:16)
[2021-04-09] MEDS: LINEZOLID 300 ML IV SCH ×2 (10:17→20:59)
[2021-04-09] MEDS: lisinopriL 20 MG TABLET PO SCH (10:17)
[2021-04-09] MEDS: POTASSIUM CHLORIDE 20 MEQ TAB.PRT.SR PO SCH ×2 (10:17→20:59)
[2021-04-09] MEDS: DOCUSATE SODIUM 100 MG CAPSULE PO SCH ×2 (10:17→20:59)
[2021-04-09] MEDS: MUPIROCIN 2% TOPICAL OINTMENT 22 GM NS SCH ×2 (10:18→21:00)
[2021-04-09] MEDS: ENOXAPARIN SODIUM 40 MG/0.4 ML SYRINGE SUBCUT SCH (10:20)
[2021-04-09] MEDS: HYDROcodone/ACETAMIN 5-325 MG TAB (NORCO/ VICODIN) PO PRN (10:50)
--- NOTE | 2021-04-09 12:00 | NUR ---
Notes Patient resting in bed. Pain is controlled, no distress noted. Repositioned patient with assist. Encouraged patient to continue to turn to reduce risk for skin breakdown. Verbalized understanding. Call light in reach, bed locked in lowest position with alarm on. Encouraged patient to call.
[2021-04-09 12:09] VITALS: BP_SYST 205
[2021-04-09] MEDS: NACL 0.9% 1,000 ML IV SCH ×2 (12:34)
[2021-04-09 16:00] VITALS: BP_SYST 187
--- NOTE | 2021-04-09 16:00 | NUR ---
Notes Patient awake watching TV, states pain is controlled at this time. No distress observed. Repositioned patient for comfort. Call light in reach and bed locked in lowest position. Encouraged to call.
--- NOTE | 2021-04-09 18:43 | NUR ---
Closing Note Patient resting in bed, no pain or distress. All needs met. Contact, fall, and infection control precautions in place. Negro catheter draining to gravity. IVF running as ordered. Will continue to monitor and endorse to night nurse.
[2021-04-09 20:00] VITALS: BP_SYST 211
[2021-04-10] VITALS: BP_SYST 173
[2021-04-10 00:06] VITALS: BP_SYST 173
[2021-04-10] MEDS: NACL 0.9% 1,000 ML IV SCH ×2 (02:40→15:39)
[2021-04-10 06:54] LABS: BASOPHILS % (AUTO) 0.2 % (0.0-2.0); EOSINOPHILS % (AUTO) 0.2 % (0.0-4.0); HEMATOCRIT 35.1 % (36-48); HEMOGLOBIN 11.6 g/dL (12.0-16.0); LYMPHOCYTES # (AUTO) 0.9 K/uL (1.0-5.5); LYMPHOCYTES % (AUTO) 4.6 % (20.5-51.5); MEAN CORPUSCULAR HEMOGLOBIN 32 pg (27-31); MEAN CORPUSCULAR HGB CONC 33 % (32-36); MEAN CORPUSCULAR VOLUME 96 fL (79.0-98.0); MONOCYTES # (AUTO) 1.4 K/uL (0.0-1.0); MONOCYTES % (AUTO) 7.5 % (1.7-9.3); NEUTROPHILS # (AUTO) 16.7 K/uL (1.8-7.7); NEUTROPHILS % (AUTO) 87.5 % (40.0-70.0); PLATELET COUNT (AUTO) 232 K/uL (130-430); RED BLOOD CELL COUNT(AUTO) 3.65 MIL/uL (4.2-6.2); RED CELL DISTRIBUTION WIDTH 14.1 % (9.0-15.0)
--- NOTE | 2021-04-10 07:39 | NUR ---
NOTIFIED CASPER KIDD THAT PT IS OFF MONITOR, TO CHANGE THE BATTERIES.
--- NOTE | 2021-04-10 07:50 | NUR ---
Initial Note Patient awake, alert, and oriented x 4. Denies pain, no distress. New batteries placed in tele box. Assisted patient with toileting. Placed call light in reach, encouraged to call. Bed locked in lowest position with alarm on. Will continue to monitor.
[2021-04-10 08:01] LABS: ANION GAP 9 (5-15); CALCIUM 8.5 mg/dL (8.4-11.0); CHLORIDE 96 mmol/L (98-107); CREATININE 0.56 mg/dL (0.55-1.30); GLUCOSE 121 mg/dL (70-99); POTASSIUM 3.3 mmol/L (3.5-5.1); SODIUM SERUM 129 mmol/L (136-145); UREA NITROGEN, BLOOD 15 mg/dL (8-21)
[2021-04-10 08:16] VITALS: BP_SYST 202
[2021-04-10] MEDS ORDERED: amLODIPine BESYLATE 5 MG TABLET PO SCH (09:00)
[2021-04-10] MEDS: MUPIROCIN 2% TOPICAL OINTMENT 22 GM NS SCH ×3 (09:39→21:00)
[2021-04-10] MEDS: hydrALAZINE HCL 20 MG/ML VIAL IVP PRN ×2 (09:40→15:42)
[2021-04-10] MEDS: POTASSIUM CHLORIDE 20 MEQ TAB.PRT.SR PO SCH (09:40)
[2021-04-10] MEDS: POLYETHYLENE GLYCOL 3350, 17 GM/ POWD.PACK PO SCH (09:41)
[2021-04-10] MEDS: METOPROLOL TARTRATE 50 MG TABLET PO SCH ×2 (09:41→23:25)
[2021-04-10] MEDS: SPIRONOLACTONE 25 MG TABLET (ALDACTONE) PO SCH (09:42)
[2021-04-10] MEDS: lisinopriL 20 MG TABLET PO SCH (09:42)
[2021-04-10] MEDS: DOCUSATE SODIUM 100 MG CAPSULE PO SCH ×2 (09:42→23:22)
[2021-04-10] MEDS: APIXABAN 2.5 MG TABLET PO SCH ×2 (09:43→23:23)
[2021-04-10] MEDS: LINEZOLID 300 ML IV SCH ×2 (09:44→23:21)
[2021-04-10 11:31] VITALS: BP_SYST 182
--- NOTE | 2021-04-10 12:00 | NUR ---
Notes Patient resting in bed, reporting pain 8/10 to BLE. Repositioned for comfort. Medications reviewed and will administer pain medication as ordered. Bed locked in lowest position and call light in reach. Will continue to monitor.
[2021-04-10] MEDS: MORPHINE 2 MG/ML INJ. SYRINGE IVP PRN (12:18)
--- NOTE | 2021-04-10 13:29 | NUR ---
Paged Dr. Anna reed.
--- NOTE | 2021-04-10 13:32 | NUR ---
PHYSICAL THERAPY CO-SIGN The Physical Therapy Progress Notes documented by Experimental Rocketsled Mechanic have been reviewed. Reviewed/Co-Signed by: July Elizabeth PT Documentation Done by:HONG MENSAH PTA LATE ENTRY FOR 04/09/21 Addendum: 04/10/21 at 1333 by July Elizabeth PT Amended: Links added.
--- NOTE | 2021-04-10 15:20 | NUR ---
Nutrition F/U Admitting Diagnosis: R femur fracture Medical History Comment: no PMH noted per EMR review SARS-CoV-2 Ag (Rapid) Negative 04/03 Subjective Information: RD bedside visit was deferred as pt was working w/ PT at time of RD rounds. Per EMR review, pt is POD 3 s/p hip Sx; PO intake average of 24% x8 meals; abd is soft and non-distended w/ active bowel sounds; last BM x1 04/10; Loc scale: 13 w/ R hip Sx incision noted. Pt is not yet meeting nutritional needs and would benefit from additional nutritional supplementation. Current Diet Order/Nutrition Support: Multiple diet orders noted (x4) -- most recent active order: Cardiac x2 days Pertinent Medications: aldactone, k-dur, lopressor, miralax, colace, morphine Pertinent Labs: Na 129 L, K 3.3 L, BG 121 H, BUn 15 WNL, CRE 0.56 WNL, WBC 19 H Height: 4'11" Weight: 110#/50 kg -- stable (04/07) Body Mass Index: 22.21 kg/m2 Keyes/Adjusted Body Weight: 98#/44 kg Estimated Energy Expenditure (kcals/day) 6830-6913 kcal/day (30-35 kcal/kg CBW d/t Sx healing) Estimated Protein Required (g/day) 60-75 gm/day (1.2-1.5 gm/kg CBW d/t Sx healing) Estimated Fluid Required (l/day) 1.5-1.8 L/day (1 ml/kcal/day for maintenance) Problem/Etiology/Signs/Symptoms Increased nutritional needs related to metabolic demands as evidenced by estimated nutritional requirements for possible Sx. (*ongoing) Expected Outcomes/Goals - Monitor diet advancement appetite and PO intakes w/ goal of pt meeting at least 50% of estimated nutritional needs, labs trending WNL, normal GI function, and skin integrity/wt maintenance Dietitian Recommendations * Cardiac diet w/ Glucerna TID, Mendez BID (supplements provide 840 kcal/day, 35 gm protein/day) * Encourage increase PO intakes Follow Up High Risk: F/U in 2-3 days
--- NOTE | 2021-04-10 15:25 | NUR ---
Dietitian Recommendations * Cardiac diet w/ Glucerna TID, Mendez BID (supplements provide 840 kcal/day, 35 gm protein/day) * Encourage increase PO intakes LP, RD Please refer to Nutrition F/U for details.
[2021-04-10 15:43] VITALS: BP_SYST 171
--- NOTE | 2021-04-10 16:00 | NUR ---
Notes Patient's sacral wound now open skin tear on left side. No drainage, no foul odor. 100% red wound bed. Periwound normal. Surrounding skin ecchymosis and fragile. Wound measures 9.0 L x 7.0 W. Wound care consult. Per protocol, cleansed wound with normal saline, patted dry. Applied moisture barrier cream and covered with foam dressing. Patient tolerated procedure well. Transferred patient to low air loss mattress. Repositioned to left side. Will continue to monitor and turn every 2 hours.
--- NOTE | 2021-04-10 18:57 | NUR ---
Closing Note Patient resting in bed. Denies pain, no distress at this time. Educated and encouraged patient on turning and repositioning, verbalized understanding. All needs met. Bed locked in lowest position and call light in reach. Will endorse to night nurse.
[2021-04-11] MEDS: POTASSIUM CHLORIDE 20 MEQ TAB.PRT.SR PO SCH ×3 (01:27→21:26)
[2021-04-11 07:02] LABS: BASOPHILS % (AUTO) 0.3 % (0.0-2.0); EOSINOPHILS # (AUTO) 0.2 K/uL (0.0-0.4); HEMATOCRIT 34.1 % (36-48); HEMOGLOBIN 11.3 g/dL (12.0-16.0); LYMPHOCYTES # (AUTO) 0.8 K/uL (1.0-5.5); LYMPHOCYTES % (AUTO) 4.4 % (20.5-51.5); MEAN CORPUSCULAR HEMOGLOBIN 32 pg (27-31); MEAN CORPUSCULAR HGB CONC 33 % (32-36); MEAN CORPUSCULAR VOLUME 95 fL (79.0-98.0); MONOCYTES # (AUTO) 1.3 K/uL (0.0-1.0); MONOCYTES % (AUTO) 7.3 % (1.7-9.3); NEUTROPHILS # (AUTO) 15.3 K/uL (1.8-7.7); PLATELET COUNT (AUTO) 235 K/uL (130-430); RED CELL DISTRIBUTION WIDTH 13.6 % (9.0-15.0); WHITE BLOOD COUNT (AUTO) 17.6 K/uL (4.8-10.8)
[2021-04-11 07:48] LABS: ANION GAP 8 (5-15); CALCIUM 8.2 mg/dL (8.4-11.0); CHLORIDE 96 mmol/L (98-107); CREATININE 0.57 mg/dL (0.55-1.30); GLUCOSE 107 mg/dL (70-99); POTASSIUM 3.7 mmol/L (3.5-5.1); SODIUM SERUM 129 mmol/L (136-145); UREA NITROGEN, BLOOD 17 mg/dL (8-21)
[2021-04-11 08:00] VITALS: BP_SYST 166
[2021-04-11] MEDS: MUPIROCIN 2% TOPICAL OINTMENT 22 GM NS SCH ×4 (09:00→21:26)
[2021-04-11] MEDS: MORPHINE 2 MG/ML INJ. SYRINGE IVP PRN (09:12)
[2021-04-11] MEDS: LINEZOLID 300 ML IV SCH ×2 (09:51→21:25)
[2021-04-11] MEDS: lisinopriL 20 MG TABLET PO SCH (09:52)
[2021-04-11] MEDS: DOCUSATE SODIUM 100 MG CAPSULE PO SCH ×2 (09:52→21:25)
[2021-04-11] MEDS: METOPROLOL TARTRATE 50 MG TABLET PO SCH ×2 (09:53→21:25)
[2021-04-11] MEDS: amLODIPine BESYLATE 5 MG TABLET PO SCH (09:53)
[2021-04-11] MEDS: APIXABAN 2.5 MG TABLET PO SCH ×2 (09:55→21:42)
[2021-04-11] MEDS: POLYETHYLENE GLYCOL 3350, 17 GM/ POWD.PACK PO SCH (09:56)
[2021-04-11] MEDS: SPIRONOLACTONE 25 MG TABLET (ALDACTONE) PO SCH (09:57)
[2021-04-11] MEDS: NACL 0.9% 1,000 ML IV SCH ×2 (10:00→17:54)
[2021-04-11 11:44] VITALS: BP_SYST 174
[2021-04-11 12:00] VITALS: BP_SYST 124
[2021-04-11 15:34] VITALS: BP_SYST 155
[2021-04-11 16:00] VITALS: BP_SYST 144
[2021-04-11 20:00] VITALS: BP_SYST 158
[2021-04-12 01:44] VITALS: BP_SYST 160
--- NOTE | 2021-04-12 07:00 | NUR ---
PATIENT WITH 0 S/S OF DISTRESS OR C/O AT THIS TIME. BED IN LOW POSITION WITH SR'S UP X3 AND BED ALARM PROPERLY FUNCTIONING FOR SAFETY. GUNN NOTED PATENT AND DRAINING TO BEDSIDE DRAINAGE BAG. HYDRATION AND CALL LIGHT IN EASY REACH. PATIENT NOTED WITH A PLEASANT UNEVENTFUL SHIFT. MEPILEX TO SACRAL NOTED CDI. NOTE eMAR AND FLOWSHEETS. WILL CONTINUE POC AND REPORT TO ONCOMING NURSE.
[2021-04-12 07:33] LABS: BASOPHILS % (AUTO) 0.2 % (0.0-2.0); EOSINOPHILS # (AUTO) 0.8 K/uL (0.0-0.4); EOSINOPHILS % (AUTO) 4.3 % (0.0-4.0); HEMATOCRIT 34.3 % (36-48); HEMOGLOBIN 11.5 g/dL (12.0-16.0); LYMPHOCYTES % (AUTO) 5.7 % (20.5-51.5); MEAN CORPUSCULAR HEMOGLOBIN 32 pg (27-31); MEAN CORPUSCULAR HGB CONC 34 % (32-36); MEAN CORPUSCULAR VOLUME 95 fL (79.0-98.0); MONOCYTES # (AUTO) 1.1 K/uL (0.0-1.0); MONOCYTES % (AUTO) 5.9 % (1.7-9.3); NEUTROPHILS # (AUTO) 15.1 K/uL (1.8-7.7); NEUTROPHILS % (AUTO) 83.9 % (40.0-70.0); PLATELET COUNT (AUTO) 246 K/uL (130-430); RED BLOOD CELL COUNT(AUTO) 3.59 MIL/uL (4.2-6.2); RED CELL DISTRIBUTION WIDTH 13.9 % (9.0-15.0)
[2021-04-12 07:40] LABS: ANION GAP 7 (5-15); CALCIUM 8.5 mg/dL (8.4-11.0); CHLORIDE 97 mmol/L (98-107); CREATININE 0.53 mg/dL (0.55-1.30); GLUCOSE 111 mg/dL (70-99); POTASSIUM 3.5 mmol/L (3.5-5.1); SODIUM SERUM 129 mmol/L (136-145); UREA NITROGEN, BLOOD 16 mg/dL (8-21)
--- NOTE | 2021-04-12 08:00 | NUR ---
AM NOTES PT IN BED. A/OX 3. DENIES ANY PAIN OR SOB. IV SITE PATENT HAND. RT HAND #20. PATENT. IVF INFUSING WELL. RES EVEN AND UNLABORED. HOB ELEVATED. REPOSITIONED WITH PILLOW.SAFETY/FALL/ASPIRATION PRECAUTIONS IN PLACE, PT IS ON AIR MATTRESS. BED LOCKED AND IN LOW POSITION. CALL LIGHT WITHIN REACH. WILL CONITNUE TO MONITOR
[2021-04-12] MEDS: NACL 0.9% 1,000 ML IV SCH ×2 (08:04→21:34)
[2021-04-12 08:14] VITALS: BP_SYST 160
[2021-04-12] MEDS: POTASSIUM CHLORIDE 20 MEQ TAB.PRT.SR PO SCH ×2 (08:41→21:35)
[2021-04-12] MEDS: DOCUSATE SODIUM 100 MG CAPSULE PO SCH ×2 (08:42→21:35)
[2021-04-12] MEDS: SPIRONOLACTONE 25 MG TABLET (ALDACTONE) PO SCH (08:42)
[2021-04-12] MEDS: METOPROLOL TARTRATE 50 MG TABLET PO SCH ×2 (08:43→21:35)
[2021-04-12] MEDS: amLODIPine BESYLATE 5 MG TABLET PO SCH (08:43)
[2021-04-12] MEDS: lisinopriL 20 MG TABLET PO SCH (08:44)
[2021-04-12] MEDS: POLYETHYLENE GLYCOL 3350, 17 GM/ POWD.PACK PO SCH (08:45)
[2021-04-12] MEDS: APIXABAN 2.5 MG TABLET PO SCH (08:45)
[2021-04-12] MEDS: MUPIROCIN 2% TOPICAL OINTMENT 22 GM NS SCH ×4 (08:53→21:49)
[2021-04-12] MEDS: LINEZOLID 300 ML IV SCH ×2 (09:40→21:35)
[2021-04-12 11:34] VITALS: BP_SYST 147
[2021-04-12 15:53] VITALS: BP_SYST 140
--- NOTE | 2021-04-12 19:00 | NUR ---
CLOSING NOTES PT IN BED. A/OX 3. PT C/O RT HIP PAIN ON MOVEMENT. OFFERED PAIN MED .PT REFUSED FOR PAIN MED.IV SITE PATENT HAND. RT HAND #20. PATENT. IVF INFUSING WELL. RES EVEN AND UNLABORED. HOB ELEVATED. REPOSITIONED WITH PILLOW.SAFETY/FALL/ASPIRATION PRECAUTIONS IN PLACE, PT IS ON AIR MATTRESS. BED LOCKED AND IN LOW POSITION. CALL LIGHT WITHIN REACH. NEEDS ATTNDED. REPORT GIVEN TO NIGHT RN
--- NOTE | 2021-04-12 19:00 | NUR ---
THIS RN TO NOTE PATIENT WITH ONLY THE RIGHT HEARING AID AT SHIFT CHANGE. WILL MONITOR THIS SHIFT.
[2021-04-12 20:00] VITALS: BP_SYST 152
[2021-04-12] MEDS: MORPHINE 2 MG/ML INJ. SYRINGE IVP PRN (21:58)
[2021-04-13 01:12] VITALS: BP_SYST 125
--- NOTE | 2021-04-13 06:15 | NUR ---
0 S/S OF DISTRESS OR C/O PAIN. PATIENT FREE OF FALLS THIS SHIFT- FALL PRECAUTIONS MAINTAINED- BED ALARM ON AND PROPERLY FUNCTIONING FOR SAFETY. LUIS A NOTED PATENT AND INTACT AT THIS TIME. PATENT REFUSES ABDUCTION WEDGE MD ORDERED. NOTE eMAR AND FLOWSHEETS THIS SHIFT- ONE DOSE OF MORHINE GIVEN WITH ADEQUATE PAIN RELIEF. PATIENT NOTED TO C/O LEFT LEG PAIN WELL BUT NOT BAD THE RIGHT LEG ,SHE VOICED. HYDRATION AND CALL LIGHT IN EASY REACH. WILL CONTINUE POC AND REPORT TO ONCOMING NURSE.
[2021-04-13 07:11] LABS: BASOPHILS # (AUTO) 0.1 K/uL (0.0-0.2); BASOPHILS % (AUTO) 0.4 % (0.0-2.0); EOSINOPHILS # (AUTO) 0.9 K/uL (0.0-0.4); HEMATOCRIT 34.5 % (36-48); HEMOGLOBIN 11.5 g/dL (12.0-16.0); LYMPHOCYTES # (AUTO) 0.9 K/uL (1.0-5.5); MEAN CORPUSCULAR HEMOGLOBIN 32 pg (27-31); MEAN CORPUSCULAR HGB CONC 33 % (32-36); MEAN CORPUSCULAR VOLUME 95 fL (79.0-98.0); MONOCYTES # (AUTO) 1.3 K/uL (0.0-1.0); MONOCYTES % (AUTO) 6.9 % (1.7-9.3); NEUTROPHILS # (AUTO) 15.4 K/uL (1.8-7.7); NEUTROPHILS % (AUTO) 82.7 % (40.0-70.0); PLATELET COUNT (AUTO) 257 K/uL (130-430); RED BLOOD CELL COUNT(AUTO) 3.64 MIL/uL (4.2-6.2); RED CELL DISTRIBUTION WIDTH 13.7 % (9.0-15.0); WHITE BLOOD COUNT (AUTO) 18.6 K/uL (4.8-10.8)
--- NOTE | 2021-04-13 07:17 | NUR ---
PHYSICAL THERAPY CO-SIGN The Physical Therapy Progress Notes documented by Geographic Area Intelligence Officer have been reviewed. Reviewed/Co-Signed by: Iraj Luna Documentation Done by: HONG MENSAH PTA Addendum: 04/13/21 at 0718 by Iraj Luna PT Amended: Links added.
--- NOTE | 2021-04-13 07:18 | NUR ---
PHYSICAL THERAPY CO-SIGN The Physical Therapy Progress Notes documented by Engine Test Cell Technician have been reviewed. Reviewed/Co-Signed by: Iraj Luna Documentation Done by: HONG MENASH PTA Addendum: 04/13/21 at 0718 by Iraj Luna PT Amended: Links added.
--- NOTE | 2021-04-13 07:18 | NUR ---
PHYSICAL THERAPY CO-SIGN The Physical Therapy Progress Notes documented by Account Manager Education have been reviewed. Reviewed/Co-Signed by: Iraj Luna Documentation Done by: HONG MENSAH PTA Addendum: 04/13/21 at 0718 by Iraj Luna PT Amended: Links added.
--- NOTE | 2021-04-13 07:34 | NUR ---
THIS RN TO NOTE PATIENT WITH ONLY THE RIGHT HEARING AID AT SHIFT CHANGE- ONCOMING DAY SHIFT RN AWARE.
[2021-04-13 07:35] VITALS: BP_SYST 157
[2021-04-13 07:37] LABS: ANION GAP 9 (5-15); CALCIUM 8.4 mg/dL (8.4-11.0); CHLORIDE 94 mmol/L (98-107); CREATININE 0.48 mg/dL (0.55-1.30); GLUCOSE 116 mg/dL (70-99); POTASSIUM 3.6 mmol/L (3.5-5.1); SODIUM SERUM 129 mmol/L (136-145); UREA NITROGEN, BLOOD 14 mg/dL (8-21)
[2021-04-13] MEDS: POTASSIUM CHLORIDE 20 MEQ TAB.PRT.SR PO SCH (08:49)
[2021-04-13] MEDS: SPIRONOLACTONE 25 MG TABLET (ALDACTONE) PO SCH (08:52)
[2021-04-13] MEDS: lisinopriL 20 MG TABLET PO SCH (08:54)
[2021-04-13] MEDS: POLYETHYLENE GLYCOL 3350, 17 GM/ POWD.PACK PO SCH (08:55)
[2021-04-13] MEDS: amLODIPine BESYLATE 5 MG TABLET PO SCH (08:55)
[2021-04-13] MEDS: MUPIROCIN 2% TOPICAL OINTMENT 22 GM NS SCH ×2 (09:00→09:02)
[2021-04-13] MEDS: METOPROLOL TARTRATE 50 MG TABLET PO SCH (09:04)
[2021-04-13] MEDS: DOCUSATE SODIUM 100 MG CAPSULE PO SCH (09:06)
[2021-04-13] MEDS: LINEZOLID 300 ML IV SCH (09:09)
--- NOTE | 2021-04-13 09:49 | NUR ---
Discharge Planning: DCP faxed updated clinicals and DC order to [facility] F [phone] P [phone] pt will go to Rm 22 per Fabiola. MIKEP made nurse aware and tracoralort is on Will Call. Addendum: 04/13/21 at 1017 by Samreen Babb DP MICAELA arranged transport with [facility] [phone] Auth# [id number] to [facility] P [phone] Rm 22. DCP made nurse aware and pt packet taken to nurse station. Disposition 03 Addendum: 04/13/21 at 1643 by Samreen Babb DP MICAELA spoke to patient nurse and made him aware a air mattress had to be ordered through [facility]. When it is delivered to [facility] today the staff will call so transport can be arranged per Fabiola in admissions.
--- NOTE | 2021-04-13 10:16 | NUR ---
ATTENDING MD DR KATZ WAS CALLED, RE: CLARIFICATION OF ORDER. SPOKE TO MARÍA.
[2021-04-13 10:18] VITALS: BP_SYST 157
[2021-04-13] MEDS: NACL 0.9% 1,000 ML IV SCH (10:40)
--- NOTE | 2021-04-13 11:30 | NUR ---
GUNN CATH DISCONTINUED ORDERED, PT TOLERATED WELL. EXPLAINED TO PT WHAT TO EXPECT AFTER GUNN DC'D.
--- NOTE | 2021-04-13 11:47 | NUR ---
PT STILL VERY LETHARGIC, RESPONDS TO PAINFUL STIMULI. WILL CONT TO MONITOR. Addendum: 04/13/21 at 1149 by Kwasi Lizama RN VOID, WRONG ENTRY, WRONG PT.
[2021-04-13 12:00] VITALS: BP_SYST 154
--- NOTE | 2021-04-13 13:46 | NUR ---
PRE DC WOUND PHOTOS TAKEN .
--- NOTE | 2021-04-13 15:00 | NUR ---
WOUND EVALUATION: Late note for 1500 secondary to patient care. Wound Consult received from . Thank you, , for the consult. Patient received in a [place]bury Bed with an IsoFlex KENYATTA mattress with low air loss therapy, awake, alert, confused. Patient is unable to turn in bed independently secondary to weakness and recent surgery. Loc Score is a 14. Past Medical History: Urinary Incontinence, Atrial Fibrillation, Hypertension, Rheumatoid arthritis, bilateral Total Hip Replacement. Recent Labs: WBC 18.6, RBC 3.64, hemoglobin 11.5, hematocrit 34.5, sodium 129, chloride 94, BUN 14, creatinine 0.48, glucose 116, albumin 2.8, PTT 25.7. Microbiology: MRSA screen results positive. Urine culture results positive for MRSA. Intrinsic factors that delay wound healing: Atrial Fibrillation, Hypoalbuminemia, Hyperglycemia. Extrinsic factors that delay wound healing: Decreased mobility. Wound Assessment: 1. Sacral/Buttocks areas: sDTI that is still evolving. Site has 45% dark discoloration, 45% red tissue, 10% purple discoloration. No odor, no drainage. Site measures 24.0 cm x 16.0 cm. Recommend: Cleanse site with normal saline. Apply moisture barrier cream to casper-wound and red tissue areas. Cover with non-adhesive foam dressings, then secure with transparent dressings. Perform site care daily, and as needed for dressing soiling or dislodgement. 2. Left Heel: Area of purple discoloration. Site is not soft or boggy. 3. Right Heel: Area of purple discoloration. Site is not soft or boggy. Recommend: Placed pillow underneath hip abductor pillow to allow heels to freely float at all times. 4. Left Forearm: Lateral and medial aspects of forearm have purple ecchymosis. No drainage. Recommend: No dressings needed. Continue to monitor sites every shift. Also recommend: Encourage and assist patient with repositioning side to side only every 2 hours with 1 pillow each underneath left and right pelvis (facilitate turning by placing 1 pillow underneath the left pelvis for 2 hours, then place same pillow underneath right pelvis for 2 hours, then repeat). Off-load pressure areas with pillows for pressure re-distribution. Offload, elevate and float bilateral heels with a pillow underneath hip abductor pillow at all times. Perform skin care and monitor skin integrity Q shift. Use moisture barrier cream on buttocks and other moisture susceptible areas QID and as needed for soiling. Place patient on a P500 low air-loss mattress. If Site 1 (Sacral/Buttocks areas) opens, Recommend: Cleanse site with normal saline. Apply moisture barrier cream to casper-wound. Apply Venelex ointment to open wound beds. Cover with non-adhesive foam dressings, then secure with transparent dressings. Perform site care daily, and as needed for dressing soiling or dislodgement.
--- NOTE | 2021-04-13 15:00 | NUR ---
WOUND CARE NURSE QUENTIN HERE AND ASSESSED PT'S WOUND.
--- NOTE | 2021-04-13 15:51 | NUR ---
sDTI Reported To Physician: Dr. Almeida returned page and was informed of sDTI on Sacral/Buttocks area, as well as areas of purple discoloration (not soft or boggy) on left and right heels. No new orders received. Will make treatment recommendations for discharge facility.
[2021-04-13 16:00] VITALS: BP_SYST 150
--- NOTE | 2021-04-13 16:02 | NUR ---
CHANGE TO ACTIVE STATUS THE AMBULANCE CUSTOMER SOLUTIONS COORDINATOR FOR 1800 WITH [facility] GOING TO [facility] RM 22. SPOKE TO CLARITA.
--- NOTE | 2021-04-13 16:51 | NUR ---
PER ORDER OF FILM RENTAL CLERK, ACTIVE STATUS FOR AMBULANCE QC ANALYST WAS CHANGED BACK TO WILL CALL. THE REASON WAS THAT THE SPECIAL MATTRESS WAS NOT YET DELIVERED IN [facility]. SPOKE TO CORBIN OF [facility].
--- NOTE | 2021-04-13 19:05 | NUR ---
Transfer update Called [facility], , to check and see if pt's air mattress was delivered. Worker informed me the bed was delivered but not set up. Following up to get bed set up for patient transfer
--- NOTE | 2021-04-13 19:17 | NUR ---
SPOKE TO MARIANNE SHIRLEY SUP AT [facility] AND HE SAID THEY WILL SET UP THE BED AT 8 PM AND WE CAN CALL THEM FOR REPORT.
--- NOTE | 2021-04-13 19:30 | NUR ---
ambulance arranged by MICHA Received incoming call from [facility] ([phone]) She informed that mattress was delivered. Ambulance transportation was arranged with [facility] ([phone]) with pick up operator time of 2100.
--- NOTE | 2021-04-13 19:35 | NUR ---
SPOKE TO PT'S SON NHI NIEVES AND INFORM HIM THAT HIS MOM WILL TRANSFER LATE TONIGHT AND THAT HIS MOM HAS WOUND /DTI ON HER BACK. PT WAS ENDORSED TO NIGHT NURSE, ASKED NIGHT RN TO GIVE REPORT AT AROUNG 8 PM AND THEN ASK MEDICAL CUSTOMER SERVICE REPRESENTATIVE OR HSE SUP TO HELP CALL FOR THE AMBULANCE.
[2021-04-13 20:00] VITALS: BP_SYST 145
--- NOTE | 2021-04-13 21:00 | NUR ---
THIS RN TO GIVE REPORT TO MARIANNE( RN FISH ICER) AT RECEIVING FACILITY [facility]. THIS RN TO INFORM RN FISH ICER OF PATIENT'S CONDITION/STABILITY AND POC- WILL LEAVE PATIENT'S 20G IV IN HER RIGHT HAND SALINE LOCKED ASKED PER RN FISH ICER AT RECIEVING FACILITY FOR ABT AT [facility]. PATIENT VOIDING FREELY SINCE GUNN CATHETER REMOVAL. WILL CONTINUE TO MONITOR UNTIL TRANSPORTATION ARRIVES.
--- NOTE | 2021-04-13 21:00 | NUR ---
ambulance ETA 2199 [address]eba from [facility] called to inform, running behind sched and gave ETA OF 2199
--- NOTE | 2021-04-13 22:30 | NUR ---
THIS RN TO SPEAK WITH EFRAIN AT [facility] FOR ETA OF 23:15. MARIANNE SHIRLEY AT [facility] AWARE OF UPDATED ETA.
--- NOTE | 2021-04-14 00:15 | NUR ---
PATIENT NOTED IN [facility] WHEN [id number] FROM [facility] ARRIVED TO TRANSPORT TO RECEIVING FACILITY. 0 S/S OF DISTRESS OR C/O WITH STABLE VITAL SIGNS. ALL PERSONAL BELONGINGS AND DISCHARGE PACKET SENT WITH PATIENT ( NOTED A IPHONE WITH WAX BLEACHER, 2 HEARING AIDS, DENTURES AND A TABLET). PATIENT TOLERATING RA WELL. NO NEW BLEEDING OR BRUISING NOTED AT THIS TIME. DRESSING CDI AT THIS TIME. FALL PRECAUTION MAINTAINED. RIGHT HAND 20G IV LEFT IN PATIENTS HAND SALINE LOCKED FOR ABT AT RECIEVING FACILITY. NO MEDS GIVEN PER THIS RN THIS SHIFT PATIENT REFUSED BECAUSE SHE DIDN'T WANT TO BE DOUBLE DOSED BY TAKING MEDS HERE AND AT RECEIVING FACILITY. TELE REMOVED ON PREVIOUS SHIFT.
--- NOTE | 2021-04-14 07:22 | NUR ---
PHYSICAL THERAPY CO-SIGN The Physical Therapy Progress Notes documented by Life Management Teacher have been reviewed. Reviewed/Co-Signed by: Iraj Luna Documentation Done by: HONG MENSAH PTA Addendum: 04/14/21 at 8823 by Iraj Luna PT Amended: Links added.
== END 2021-04-14 00:20 | DRG 535 ==
LOC: SED 15:33 → STU 18:12
PROVIDERS: ADMIT Hospitalist; ATTEND Hospitalist
DX: S72.001A Fracture of unspecified part of neck of right femur, initial encounter for closed fracture (principal); J18.9 Pneumonia, unspecified organism; I48.20 Chronic atrial fibrillation, unspecified; N39.0 Urinary tract infection, site not specified; F03.90 Unspecified dementia, unspecified severity, without behavioral disturbance, psychotic disturbance, mood disturbance, and anxiety; M06.9 Rheumatoid arthritis, unspecified; Z20.822 Contact with and (suspected) exposure to COVID-19; I10 Essential (primary) hypertension; K56.41 Fecal impaction; M81.0 Age-related osteoporosis without current pathological fracture; I70.90 Unspecified atherosclerosis; W18.39XA Other fall on same level, initial encounter; B95.62 Methicillin resistant Staphylococcus aureus infection as the cause of diseases classified elsewhere; Z95.0 Presence of cardiac pacemaker; Z90.49 Acquired absence of other specified parts of digestive tract; Z87.891 Personal history of nicotine dependence; Z87.81 Personal history of (healed) traumatic fracture; Z86.718 Personal history of other venous thrombosis and embolism; Y93.89 Activity, other specified; Y92.89 Other specified places as the place of occurrence of the external cause; Y99.8 Other external cause status
CPT/HCPCS: 36415; 71045; 72170-TC; 72192-TC; 73502; 73552; 76376; 80048; 80053; 81000; 83735; 83880; 84484; 85025; 85610-TC; 85730-TC; 87081; 87086; 87186-TC; 88305; 88311; 93005; 93306; 96365; 96375; 97110-GP; 97112-GP; 97116-GP; 97530-GP; 99285; C1776; C9290; G0378; J0360; J0690; J0694; J0696; J1450; J1650; J2020; J2270; J2405; J2704; J3370; J3480; J3490; J7030; J7050; J7060